=== PATIENT | female | born 1955 | race Caucasian/White ===

== ENCOUNTER 2019-11-30 15:07 | Observation (INO) | payer OTHER, SELFPAY ==
[2019-11-03 13:32] VITALS: BP 117/73; PULSE 68; RESP 16; TEMP 36.8; O2SAT 97; BMI 24.6
--- NOTE | 2019-11-03 13:49 | SDCEKG_ITS ---
Test Reason : Blood Pressure : / mmHG Vent. Rate : 062 BPM Atrial Rate : 062 BPM P-R Int : 158 ms QRS Dur : 082 ms QT Int : 414 ms P-R-T Axes : 056 049 065 degrees QTc Int : 420 ms Normal sinus rhythm Normal ECG Confirmed by JUSTICE COBB, ASHLYN ([id number]), mapping editor JOY SPAULDING ([id number]) on 11/04/2019 9:06:18 AM Referred By: Bruno Palafox Confirmed By:ASHLYN RENDON MD
[2019-11-03 14:17] LABS: Absolute Lymphocyte Count 1.16 X10^3/uL (0.83-4.51); Absolute Neutrophil Count 3.7 X10^3/uL (2.0-7.7); Basophil# 0.04 X10^3/uL; Basophil% 0.7 % (0-1); Eosinophils% 1.9 % (0-5); Hemoglobin 12.4 g/dL (12.0-15.0); Lymphocyte # 1.16 X10^3/ul (4.0); Lymphocyte % 21.5 % (19-41); Mean Corp Hgb Conc 32.6 g/dL (32-36); Mean Corpuscular Hgb 29.2 pg (27.0-32.0); Mean Corpuscular Volume 89.4 fL (81-99); Mean Platelet Vol. 8.8 fl (6.2-12.0); Monocyte% 7.4 % (0-10); NRBC Flagged by Analyzer 0 % (0-5); Neutrophil # 3.67 X10^3/uL (2.7-7.7); Neutrophil % 68.1 % (47-70); Platelet Count 356 K/mm3 (150-450); RBC Distribution Width CV 13.1 % (11.6-14.6); RBC Distribution Width SD 42.9 fl (35.1-43.9); Red Blood Count 4.25 M/mm3 (4.2-5.4); White Blood Count 5.4 K/mm3 (4.4-11.0)
[2019-11-03 14:35] LABS: Anion Gap 3 (5-15); BUN 18 mg/dL (7-18); BUN/Creat Ratio 24.9 RATIO (10-20); Calcium,Total 9.4 mg/dL (8.5-10.1); Chloride 104 mmol/L (98-107); Creatinine, Serum 0.72 mg/dL (0.55-1.02); EST Glomerular Filtration Rate 87 mL/min (>60); Est Glom Filt Rate - Afr Amer 105 mL/min (>60); Estimated Creatinine Clearance 77.77 ml/min; Glucose 96 mg/dL (74-106); Potassium 4.2 mmol/L (3.5-5.1); Sodium Level 139 mmol/L (136-145)
[2019-11-30] VITALS (11 sets, daily range): BP systolic 91–118; BP diastolic 51–87; PULSE 62–93; RESP 16–18; TEMP 36.1–37.1; O2SAT 98–100; BMI 24.6
[2019-11-30 11:21] LABS: Bedside Glucose 86 mg/dL (70-110)
[2019-11-30 11:33] LABS: Magnesium 2.4 mg/dL (1.6-2.6)
[2019-11-30] MEDS: Lactated Ringers 1,000 ML 100 ML IV ×3 (11:44→18:22)
[2019-11-30] MEDS: Acetaminophen 500 MG Tablet 1000 MG PO ×2 (11:45→21:00)
[2019-11-30] MEDS: Gabapentin 600 MG Tablet PO (11:46)
--- NOTE | 2019-11-30 13:05 | HIP_PTH ---
PATIENT: HARVINDER CARSON LOC: MS3 U#:[id number] AGE/SX: 64/F ROOM: MS321 RE11/30/[address]: Dr. Bruno Palafox DO : 1955 BED: 1 DIS: 12/01/2019 SPEC #: [id number] RECD: 11/30/19 16:39 STATUS: TIEN REMoon #: [id number] ANSHU: 11/30/19 13:[address]: Bruno Palafox DEPT: SURGICAL PATHOLOGY RECD BY: Walt Cantu ENTERED: 12/01/19 08:15 SP TYPE: TOTAL HIP OTHR DR: Dr. Mary Rhoades MD Tissues: Hip, NOS Procedures: Decalcification bone/plaque Surgery Specimen Level IV HEADER OPERATION: ERAS, left total hip replacement PRE-OP DIAGNOSIS: Unilateral primary osteoarthritis left hip TISSUE SUBMITTED: Bone and tissue left hip MICROSCOPIC DIAGNOSIS Left hip bone and soft tissue, total hip replacement/resection: Femoral head with degenerative osteoarthritic changes. STEWART:chica 12/04/19 MICROSCOPIC DESCRIPTION Slides are reviewed. GROSS DESCRIPTION Received is one container labeled with the patient's name and designated bone and soft tissue left hip. The specimen consists of a deformed femoral head with portion of femoral neck. The femoral head measures 4.5 x 4.5 x 4.5 cm and the femoral neck measures up to 1.5 cm in length. The articular surface displays prominent osteophyte formation, eburnation and bone erosion. No soft tissue is identified. Dinkey Engineer sections are submitted in one cassette after decalcification. / STEWART:chica 12/01/19 TC:5 CPT: 26501, 20921
[2019-11-30] MEDS: Cefazolin 2 GM in 0.9% Normal Saline 100 ML IV (13:11)
--- NOTE | 2019-11-30 15:22 | EKG12_ITS ---
Test Reason : POSTOP Blood Pressure : / mmHG Vent. Rate : 071 BPM Atrial Rate : 071 BPM P-R Int : 150 ms QRS Dur : 086 ms QT Int : 426 ms P-R-T Axes : 070 057 074 degrees QTc Int : 462 ms Normal sinus rhythm Nonspecific T wave abnormality Abnormal ECG Confirmed by WANDA COBB, SHERIE ([id number]), commissioning editor ANDREA DELEON ([id number]) on 12/07/2019 4:10:23 PM Referred By: Bruno Palafox Confirmed By:SHERIE MUÑOZ MD
--- NOTE | 2019-11-30 15:30 | RAD_ITS ---
STUDY: X-RAY - PELVIS AND LEFT HIP REASON FOR EXAM: Female, 64 years old. POST OP LEFT TOTAL HIP TECHNIQUE: 2 views of the pelvis and hip. COMPARISON: None. FINDINGS: There is a non-specific bowel gas pattern. Normal visualized soft tissue structures. Normal bilateral iliac wings, sacroiliac joints and visualized sacrum. Normal bilateral superior and inferior pubic rami. Normal pubic symphysis. Normal bilateral ischial tuberosities. The patient has undergone left total hip arthroplasty. Following resection of the femoral head and neck, a metal bipolar prosthesis was placed. The acetabular and femoral components appear well seated and in anatomic alignment. There is no demonstrated fracture. Gas is noted about the femoral neck, consistent with recent surgery. There are numerous metal skin eyal along the lateral soft tissues. RAD/Hip Min 2 Views (Portable) IMPRESSION: Status post left total hip arthroplasty. Electronically Signed: Rakan Gonzalez MD at 16:04 EST , Service support ,
[2019-11-30 16:00] LABS: Anion Gap 4 (5-15); BUN 8 mg/dL (7-18); Calcium,Total 8.7 mg/dL (8.5-10.1); Chloride 111 mmol/L (98-107); Creatinine, Serum 0.67 mg/dL (0.55-1.02); EST Glomerular Filtration Rate 95 mL/min (>60); Est Glom Filt Rate - Afr Amer 114 mL/min (>60); Estimated Creatinine Clearance 83.58 ml/min; Glucose 121 mg/dL (74-106); Potassium 3.5 mmol/L (3.5-5.1); Sodium Level 143 mmol/L (136-145)
[2019-11-30 16:05] LABS: Hematocrit 33.5 % (37-47); Hemoglobin 10.6 g/dL (12.0-15.0); Mean Corp Hgb Conc 31.6 g/dL (32-36); Mean Corpuscular Volume 91.5 fL (81-99); Mean Platelet Vol. 8.9 fl (6.2-12.0); Platelet Count 298 K/mm3 (150-450); RBC Distribution Width CV 13.1 % (11.6-14.6); RBC Distribution Width SD 43.9 fl (35.1-43.9); Red Blood Count 3.66 M/mm3 (4.2-5.4); White Blood Count 7.9 K/mm3 (4.4-11.0)
--- NOTE | 2019-11-30 16:47 | OP.PCM_ITS ---
Report of Operation Date of Procedure: 11/30/19 Pre-Operative Diagnosis: OA left hip Post-Operative Diagnosis: same Surgery/Procedure Performed:: Left THR Description of Surgical Findings:: Primary Surgeon/Physician: Bruno Palafox curriculum assistant principal: Robert Pineda PA-C curriculum assistant principal: Pre-Operative Diagnosis: OA left hip Post-Operative Diagnosis: same Surgery/Procedure Performed: Left THR Estimated Blood Loss: 100 cc Specimen's Removed: bone Type of Anesthesia: spinal ASA Class: ASA2 Severe Disease Implants: [Igor Trident Tritanium size 48 mm cup, +0 neck length, MDM liner, Igor Accolade 2 size 4 press-fit stem ] Surgical Indications: Patient has severe end-stage osteoarthritic changes in the [left ] hip. They have failed conservative measures including activity modification, anti-inflammatories, use of assistive devices. This to the point where the pain affects their ability to enjoy life and complete activities of daily living without discomfort. Patient has elected to undergo the above procedure Procedure Description: The patient was greeted in the preoperative area the [left ] hip was marked with surgical marker preoperative antibiotics administered. The patient was then taken to or suite in stable condition. Preoperative tranexamic acid was also utilized. Once the patient was placed in the supine position on the operating room table and once adequate anesthesia was obtained they were then placed in the lateral decubitus position with the surgical hip facing the field. All bony prominences were well-padded. A commercial hip position was utilized. The appropriate extremity was then prepped and draped in usual sterile fashion. Ioban was placed on the skin. Surgical timeout was performed and surgery was commenced. A standard posterior approach to the hip was then performed. Incision was planned and carried out with a #10 blade scalpel. Dissection was then carried length of the incision to the IT band which was split proximally and distally. A Charnley retractor was then placed for soft tissue retraction exposing the piriformis. A standard posterior capsulotomy was performed. Severe eburnation of bone was noted and periarticular osteophytes were identified consistent with severe end-stage osteoarthritis. A femoral neck osteotomy guide was used to oscar the proximal femur. A femoral osteotomy was then created approximately 1 fingerbreadth above the lesser trochanter. This was measured and placed on the back table. Once this was complete acetabular retractors were placed anteriorly and posteriorly. Labrum was then removed from the acetabulum exposing the entire cup of the acetabulum. Sequential reaming was then commenced and the acetabulum was medialized and sequentially widened in order to accommodate appropriate size cup. The acetabular cup was then impacted into position to the appropriate depth referencing approximately 30? anteversion and 45? of inclination. Excellent purchase was obtained. An appropriate size MDM liner was then placed. Attention was then turned to the femoral preparation. The hip was placed in the 90/90 position and a lateralizing box osteotome was utilized. Femoral starting awl was used followed by sequential broaching to the appropriate size. Excellent purchase was obtained with the stem no stem subsidence and excellent rotational stability was confirmed. A calcar reamer was then used in the trial head neck was placed on the broach. The hip was then located and taken through full range of motion flexion internal and external rotation as well as extension. Excellent stability was noted no impingement was identified of the components and leg lengths appear to be appropriate. The hip was at this point dislocated and the trial femoral components were removed. The final femoral stem was then implanted and impacted to the appropriate depth. Again excellent purchase was obtained no stem subsidence or rotational instability was noted. The hip was once again trialed and confirmation of leg length and stability was performed. Soft tissue tension also appeared to be appropriate. At this point the hip was redislocated and the trunnion was cleaned and dried meticulously in the appropriate size MDM femoral head was placed on the clean dry trunnion using a 12/14 Kumar taper. The hip was once again relocated and again taken through full range of motion. I did inject a cocktail of postoperative pain medication in the deep and superficial tissues. Copious irrigation was performed. Anatomic closure of the piriformis tendon was performed through drill holes in the greater trochanter. A #1 Vicryl 0 Vicryl was utilized in subcutaneous tissue and surgical eyal were placed in the skin. A well-padded nonadherent dressing was applied. Patient was taken to PACU in stable condition. No complications were identified. Will follow standard postop protocol for total hip arthroplasty. My assistant golf professional played a vital role in the procedure beginning with positioning, holding retraction of soft tissues, positioning the leg to optimize visualization during the procedure and assisting with wound closure. curriculum assistant principal: Robert Pineda Type of Anesthesia:: Spinal Anesthesiologist: Ayad Marroquin Specimen's removed: bone Estimated Blood Loss (mL): 100 cc - Admit VTE Documentation VTE Present on Admission: No VTE Mechan Device Prophylaxis: SCD's, Thigh High BECKY Hose VTE Pharm Prophylaxis ordered?: Yes
[2019-11-30] MEDS: Ondansetron 4 MG/2 ML Vial IV (18:22)
[2019-11-30] MEDS: 0.9% NaCl Peripheral Flush Adult/Peds IV (18:22)
[2019-11-30] MEDS: oxyCODONE 5 MG Tablet PO (18:22)
[2019-11-30] MEDS: Cefazolin 1 GM/50 ML BAG IV (20:58)
[2019-11-30] MEDS: Senna/Docusate Sodium 1 Tablet 2 TABLET PO (20:58)
[2019-11-30] MEDS: Aspirin 325 MG Tablet PO (20:59)
[2019-12-01 00:45] VITALS: BP 108/59; PULSE 68; RESP 18; TEMP 36.6; O2SAT 97
[2019-12-01] MEDS: Cefazolin 1 GM/50 ML BAG IV (05:18)
[2019-12-01] MEDS: Acetaminophen 500 MG Tablet 1000 MG PO ×2 (05:18→14:47)
[2019-12-01 06:00] LABS: Hematocrit 31.3 % (37-47); Hemoglobin 9.9 g/dL (12.0-15.0); Mean Corp Hgb Conc 31.6 g/dL (32-36); Mean Corpuscular Hgb 28.8 pg (27.0-32.0); Platelet Count 265 K/mm3 (150-450); RBC Distribution Width CV 13.2 % (11.6-14.6); RBC Distribution Width SD 43.6 fl (35.1-43.9); Red Blood Count 3.44 M/mm3 (4.2-5.4); White Blood Count 7.8 K/mm3 (4.4-11.0)
[2019-12-01 06:16] LABS: Anion Gap 5 (5-15); BUN 6 mg/dL (7-18); BUN/Creat Ratio 12.3 RATIO (10-20); Calcium,Total 8.4 mg/dL (8.5-10.1); Chloride 104 mmol/L (98-107); Creatinine, Serum 0.49 mg/dL (0.55-1.02); EST Glomerular Filtration Rate 136 mL/min (>60); Est Glom Filt Rate - Afr Amer 165 mL/min (>60); Estimated Creatinine Clearance 114.28 ml/min; Glucose 102 mg/dL (74-106); Potassium 3.6 mmol/L (3.5-5.1); Sodium Level 137 mmol/L (136-145)
[2019-12-01] MEDS: Ondansetron 4 MG/2 ML Vial IV (06:52)
[2019-12-01] MEDS: 0.9% NaCl Peripheral Flush Adult/Peds IV (06:55)
--- NOTE | 2019-12-01 07:45 | PCM.PN.ORT ---
Subjective: Patient sitting at bedside eating breakfast. Patient states her pain is very well managed. Patient denies chest pain, shortness of breath, calf pain, nausea vomiting. Patient has no other complaints at this time. Patient states she is ready for discharge home, and will continue with outpatient therapy at [facility] Objective: Dressing is clean dry intact. Patient's vitals and labs were all reviewed noted in the medical record. Patient is afebrile neurovascular is otherwise intact. Patient has good plantar flexion dorsiflexion of the bilateral feet and ankles. Patient has no calf tenderness, no signs and symptoms of DVT. Patient speaking in full sentences, no shortness of breath. - Physical Exam Vitals/I&O's: Vital Signs Temp Pulse Resp BP Pulse Ox 97.8 F 68 18 108/59 L 97 12/01/19 00:45 12/01/19 00:45 12/01/19 00:45 12/01/19 00:45 12/01/19 00:45 Oxygen Flow Rate (L/min) 6 Oxygen Delivery Method Room Air Weight: 71.4 kg Body Mass Index (BMI) 24.6 Intake and Output for Last 24 Hours 11/29/19 11/30/19 12/01/19 23:59 23:59 23:59 Intake Total 2693.33 / 3043.33 1711.67 / 1711.67 Output Total 900 / 900 Balance 2693.33 / 2143.33 811.67 / 811.67 General: Alert, Oriented x3, Cooperative HEENT: PERRLA Oral: Moist Mucosa Neurological: Cranial nerves II-XII grossly intact Psych/Mental Status: Normal Affect, Alert and oriented to time, place, person, mood and affect Laboratory Results 11/30/19 11:17: POC Glucose 86 11/30/19 11:20: Magnesium 2.4 11/30/19 15:36: WBC 7.9, RBC 3.66 L, Hgb 10.6 L, Hct 33.5 L, MCV 91.5, MCH 29.0, MCHC 31.6 L, RDW Std Deviation 43.9, RDW Coeff of Nancy 13.1, Plt Count 298, MPV 8.9 11/30/19 15:36: Sodium 143, Potassium 3.5, Chloride 111 H, Carbon Dioxide 28.0, Anion Gap 4 L, BUN 8, Creatinine 0.67, Estim Creat Clear Calc 83.58, Est GFR (MDRD) Af Amer 114, Est GFR (MDRD) Non-Af 95, BUN/Creatinine Ratio 12.0, Glucose 121 H, Calcium 8.7 11/30/19 15:36: Troponin I < 0.015 12/01/19 05:25: WBC 7.8, RBC 3.44 L, Hgb 9.9 L, Hct 31.3 L, MCV 91.0, MCH 28.8, MCHC 31.6 L, RDW Std Deviation 43.6, RDW Coeff of Nancy 13.2, Plt Count 265, MPV 9.0 12/01/19 05:25: Sodium 137, Potassium 3.6, Chloride 104, Carbon Dioxide 28.0, Anion Gap 5, BUN 6 L, Creatinine 0.49 L, Estim Creat Clear Calc 114.28, Est GFR (MDRD) Af Amer 165, Est GFR (MDRD) Non-Af 136, BUN/Creatinine Ratio 12.3, Glucose 102, Calcium 8.4 L Current Medications Acetaminophen (Tylenol) 1,000 mg PO Q8 [facility] Last Admin: 12/01/19 05:18 Dose: 1,000 mg Documented by: Aspirin (Aspirin) 325 mg PO BIDCM [facility] Last Admin: 11/30/19 20:59 Dose: 325 mg Documented by: Sodium Chloride () 250 mls @ 15 mls/hr IV .[id number] PRN PRN Reason: Saline Flush Sodium Chloride () 250 mls @ 15 mls/hr IV .[id number] PRN PRN Reason: Additional IVPB Infusion Insulin Human Lispro (Humalog Kwikpen (Bkc)) 1 - 6 unit SC Q4H PRN PRN; Protocol PRN Reason: BG>/= 180, SEE PROTOCOL Ondansetron HCl (Zofran) 4 mg IV Q8H PRN PRN PRN Reason: NAUSEA Last Admin: 12/01/19 06:52 Dose: 4 mg Documented by: Oxycodone HCl (Oxyir) 5 - 10 mg PO Q4H PRN PRN PRN Reason: Pain Score 4-10/10 Last Admin: 11/30/19 18:22 Dose: 5 mg Documented by: Promethazine HCl (Phenergan) 12.5 mg IM Q6H PRN PRN; Protocol PRN Reason: NAUSEA/VOMITING Senna/Docusate Sodium (Senokot-S, Shellie-Colace) 2 tablet PO BID CASSI Last Admin: 11/30/19 20:58 Dose: 2 tablet Documented by: Sodium Chloride () 5 - 15 ml IV UD PRN PRN Reason: SALINE FLUSH Last Admin: 12/01/19 06:55 Dose: 10 ml Documented by: Sodium Chloride () 10 - 40 ml IV UD PRN PRN Reason: SALINE FLUSH Medical Necessity - Tobacco Use Smoking Status: Never smoker Assessment/Plan Status post left total hip arthroplasty Plan 1. Continue all pain medications as prescribed 2. Continue physical therapy, weight-bear as tolerated with walker. 3. Aspirin 81 mg 1 p.o. every 12 hours x30 days for postop DVT prophylaxis 4. Encourage incentive spirometry 5. Discharge home today after p.m. therapy 6. Follow-up as scheduled, see pink sheet
--- NOTE | 2019-12-01 07:51 | DCINST_ITS ---
Discharge Diet: No Restrictions Discharge Activity: May Not Drive, May Shower, Use Walker May shower in (days): 3 - only if incision is dry and without drainage. Do NOT soak/submerge in tub/pool/prabhakar/stream/hot tub. May resume sexual activity in: No Restrictions Ice area for (Minutes): 20 - every hour while awake Weight Bearing Status: Weight bearing as tolerated Lifting Restrictions: 20 pounds Elevate: Operative Extremity Call your doctor if your incision/area has: Continuous Slow Oozing, Sudden Increased Bleeding, Increased Pain/ Swelling, Increased Redness, Foul Smelling Discharge Call your doctor if you observe: Fever of 101 or Higher, Inability to urinate, Inability to have a bowel movement, Shortness of breath, Fainting spells, Chest pain, Increased palpitations (irregular heartbeat), Calf discomfort, Uncontrolled pain Change Dressing in (Days):: 0 - Change daily and as needed. Remove Dressing in (days):: 8 Cleanse incision/area with: Soap & Water Allergies/Adverse Reactions: Allergies hydrocodone [From Vicodin] Allergy (Verified 11/30/19 11:26) Rash progesterone Allergy (Verified 11/30/19 11:26) Rash Sulfa (Sulfonamide Antibiotics) Allergy (Verified 11/30/19 11:26) Rash Medications to take at Discharge Cholecalciferol (VIT D3) [Vitamin D3] 1,000 unit PO DAILY 11/03/19 Glucos Sul 2Kcl/MSM/Chond/C/Mn [Glucosamine Chondroitin Cap] 1 ea PO BID 11/03/19 Latanoprost/Pf [Latanoprost 0.005% Eye Drop] 1 drp OP QHS 11/03/19 Acetaminophen [Tylenol] 1,000 mg PO Q8 #90 tab 12/01/19 Aspirin 325 mg PO BIDCM #60 tab 12/01/19 Oxycodone [Oxyir] 5 - 10 mg PO Q4H PRN PRN 7 Days #60 tablet 12/01/19 Senna/Docusate Sodium [Senokot-S] 2 tablet PO BID tablet 12/01/19 The following prescriptions were given: Aspirin 325 mg PO BIDCM #60 tab Transmission Status: Pending to [facility] Oxycodone [Oxyir] 5 - 10 mg PO Q4H PRN PRN 7 Days #60 tablet PRN Reason: Pain Score 4-10/10 Transmission Status: Sent to [facility] Acetaminophen [Tylenol] 1,000 mg PO Q8 #90 tab Transmission Status: Pending to [facility] Primary Care Physician: Mary Rhoades MD [Primary Care Provider] - Test Results: Test results from this visit will be discussed in further detail at your follow- up appointment, if applicable. Please Follow Up With: Robert Pineda PA-C When: as scheduled
[2019-12-01 08:23] VITALS: BP 93/56; PULSE 74; RESP 16; TEMP 36.9; O2SAT 98
[2019-12-01] MEDS: Aspirin 325 MG Tablet PO (08:34)
[2019-12-01] MEDS: Senna/Docusate Sodium 1 Tablet 2 TABLET PO (11:09)
--- NOTE | 2019-12-01 11:20 | CASEMGMT ---
RN OWEN Face to Face with patient for initial transition planning/care coordination assessment. RN CM introduced self and role at [facility]. Patient lying in bed, alert and oriented, at bedside. Patient willing to participate in assessment and is able to answer all questions appropriately. Care providers, pharmacy, and demographics verified. Patient wishes to discharge home and is setup with [facility] for outpatient therapy. Patient states he has no further needs or concerns at this time. CM to follow for discharge planning needs that may arise. PCP: [place] Specialists: [place] rooms director Preferred Pharmacy: [facility] while at hospital Insurance: MMO Prescription Benefit: yes Living Will/HPOA: yes, Jesus Harvey LNOK: Living Arrangements: Patient lives with in split level home. Patient independent prior to surgery. Transportation: DME/HHC: Patient has shower chair, raised toilet seat, cane, walker, hip kit. Disposition Plan: Patient to discharge home with outpatient therapy, family support, and follow-up plans in place. Marlys WYNNE, RN, CM
[2019-12-01] MEDS: oxyCODONE 5 MG Tablet PO (11:55)
[2019-12-01 14:35] VITALS: BP 104/60; PULSE 77; RESP 16; TEMP 37.1; O2SAT 99
== END 2019-12-01 16:00 | disposition home or self-care (01) ==
LOC: SDC 15:58 → MS3 15:58
PROVIDERS: Anesthesiology; Admitting Provider Orthopaedic Surgery; PCP Internal Medicine; Referring Provider Orthopaedic Surgery; Visit Provider Orthopaedic Surgery
PROC: 0SRB0JZ Replacement of Left Hip Joint with Synthetic Substitute, Open Approach (ICD-10-PCS; CPT 27130; principal; 2019-11-30 12:40)
DX: M16.12 Unilateral primary osteoarthritis, left hip (principal); Z79.899 Other long term (current) drug therapy; Z79.82 Long term (current) use of aspirin; E78.00 Pure hypercholesterolemia, unspecified; M17.11 Unilateral primary osteoarthritis, right knee
CPT/HCPCS: 01214; 27130; 36415; 73502; 80048; 82962; 83735; 84484; 85025; 85027; 87081; 88305; 88311; 93005; 96361; 96365; 96366; 96375; 96376; 97116; 97162; 97166; 97530; 97535; 99218; 99251; C1776; J7120; A4216; G0378; G0379; G0463; J2405

== ENCOUNTER → 2020-02-12 08:29 | Outpatient (CLI) | payer OTHER, SELFPAY ==
[2019-11-30 16:36] VITALS: BMI 24.6
--- NOTE | 2020-02-12 08:40 | CT_ITS ---
STUDY: CT SCAN LOWER EXTREMITY RIGHT REASON FOR EXAM: Female, 64 years old. RT KNEE PALMER protocol RADIATION DOSAGE (If Supplied By Facility): CTDIvol = ( 30.70 ) mGy, DLP = ( 2048.05 ) mGycm. Individualized dose optimization techniques were used for this CT.? TECHNIQUE: Multiple axial tomographic images of the right hip, right knee and right ankle joints were obtained. Coronal and sagittal reconstruction was obtained as well. COMPARISON: None. FINDINGS: Minimal joint space narrowing is seen involving the right hip joint. Degenerative spurring is seen along the distal femur and proximal tibia. Marked degree of joint space narrowing involving the medial compartment of the knee joint in keeping with the marked degree of osteoarthritis. There is a 5.7 mm while corticated bony fragment along the posterior aspect of knee joint suggestive of a intra-articular loose body. Mild degree of the cystic changes are seen in the femoral condyles. Mild degree of joint space narrowing involving the patellofemoral joint. Screw fixation device is seen along the anterior aspect of the right tibial tubercle with resection. Prepatellar soft tissue swelling. Imaging of the right ankle demonstrates prior open reduction and fixation of the distal fibular fracture utilizing screw and plate fixation device. A screw is seen traversing the distal tibiofibular joint. Cystic changes are seen in the tibial epiphysis with the mild degree of joint space narrowing. There is evidence of a talar beak. CT/Extremity Lower without Contra IMPRESSION: Marked degree of joint space narrowing and degenerative changes involving the medial compartment of the knee joint as described. Electronically Signed: Jamie Her, at 9:48 EDT , Service support ,
== END ==
PROVIDERS: PCP Internal Medicine; Referring Provider Orthopaedic Surgery; Visit Provider Orthopaedic Surgery
DX: M17.31 Unilateral post-traumatic osteoarthritis, right knee (principal); M21.161 Varus deformity, not elsewhere classified, right knee
CPT/HCPCS: 73700; 93005

== ENCOUNTER 2020-02-29 07:28 | Observation (INO) | payer OTHER, SELFPAY ==
[2019-11-30 16:36] VITALS: BMI 24.6
--- NOTE | 2020-02-12 08:56 | EKG12_ITS ---
Test Reason : PRE OP Blood Pressure : / mmHG Vent. Rate : 067 BPM Atrial Rate : 067 BPM P-R Int : 140 ms QRS Dur : 080 ms QT Int : 400 ms P-R-T Axes : 027 009 024 degrees QTc Int : 422 ms Normal sinus rhythm Normal ECG Confirmed by KAREN GOULD ([id number]), slot editor ANDREA DELEON ([id number]) on 02/15/2020 1:15:41 PM Referred By: Bruno Palafox Confirmed By:KAREN GOULD
[2020-02-12 11:08] LABS: Absolute Lymphocyte Count 1.13 X10^3/uL (0.83-4.51); Basophil# 0.04 X10^3/uL; Basophil% 0.8 % (0-1); Eosinophil# 0.09 X10^3/uL; Eosinophils% 1.9 % (0-5); Hematocrit 35.9 % (37-47); Hemoglobin 11.5 g/dL (12.0-15.0); Lymphocyte # 1.13 X10^3/ul (4.0); Lymphocyte % 23.8 % (19-41); Mean Corpuscular Volume 90.4 fL (81-99); Mean Platelet Vol. 9.2 fl (6.2-12.0); Monocyte# 0.47 X10^3/uL; Monocyte% 9.9 % (0-10); NRBC Flagged by Analyzer 0 % (0-5); Neutrophil # 2.99 X10^3/uL (2.7-7.7); Neutrophil % 63.2 % (47-70); Platelet Count 349 K/mm3 (150-450); RBC Distribution Width CV 13.4 % (11.6-14.6); RBC Distribution Width SD 43.9 fl (35.1-43.9); Red Blood Count 3.97 M/mm3 (4.2-5.4); White Blood Count 4.7 K/mm3 (4.4-11.0)
[2020-02-12 11:44] LABS: Anion Gap 5 (5-15); BUN 15 mg/dL (7-18); BUN/Creat Ratio 22.5 RATIO (10-20); Calcium,Total 9.4 mg/dL (8.5-10.1); Chloride 105 mmol/L (98-107); Creatinine, Serum 0.67 mg/dL (0.55-1.02); EST Glomerular Filtration Rate 95 mL/min (>60); Est Glom Filt Rate - Afr Amer 115 mL/min (>60); Glucose 81 mg/dL (74-106); Potassium 3.9 mmol/L (3.5-5.1); Sodium Level 139 mmol/L (136-145)
[2020-02-26 12:11] LABS: Probe Check PASS; SARS-COV-2 DNA by PCR Negative (Negative); Specimen Processing Control PASS
[2020-02-29] VITALS (11 sets, daily range): BP systolic 98–127; BP diastolic 60–82; PULSE 54–88; RESP 16–18; TEMP 36.3–36.7; O2SAT 93–100; BMI 25.2
[2020-02-29] MEDS: Lactated Ringers 1,000 ML 100 ML IV (06:03)
[2020-02-29] MEDS: Acetaminophen 500 MG Tablet 1000 MG PO ×3 (06:03→22:49)
[2020-02-29] MEDS: Gabapentin 600 MG Tablet PO (06:05)
[2020-02-29] MEDS: Scopolamine 1mg/72hr Patch 1 PATCH TRANSDERM. (06:07)
[2020-02-29 06:31] LABS: Bedside Glucose 76 mg/dL (70-110)
[2020-02-29] MEDS: Cefazolin 2 GM in 0.9% Normal Saline 100 ML IV (07:26)
--- NOTE | 2020-02-29 07:30 | KNEE_PTH ---
PATIENT: HARVINDER CARSON LOC: MS3 U#:[id number] AGE/SX: 64/F ROOM: [facility] RE02/29/[address]: Dr. Bruno Palafox DO : 1955 BED: 1 DIS: 03/01/2020 SPEC #: [id number] RECD: 02/29/20 10:03 STATUS: TIEN BIB #: [id number] ANSHU: 02/29/20 07:[address]: Bruno Palafox DEPT: SURGICAL PATHOLOGY RECD BY: Walt Cantu ENTERED: 02/29/20 11:17 SP TYPE: TOTAL KNEE OTHR DR: MD Robert Askew PA-C Tissues: Knee, NOS Procedures: Decalcification bone/plaque Surgery Specimen Level IV HEADER OPERATION: ERAS, total knee replacement robotic arm assist PRE-OP DIAGNOSIS: Unilateral posttraumatic osteoarthritis right knee TISSUE SUBMITTED: Right knee bone and soft tissue MICROSCOPIC DIAGNOSIS Bone and soft tissue of right knee, total knee resection: Mild to moderate synovial hyperplasia with associated chronic inflammation. Bone with severe degenerative joint disease. AM:chica 03/03/20 MICROSCOPIC DESCRIPTION Slides are reviewed. GROSS DESCRIPTION Received is one container designated right knee bone and soft tissue. The specimen consists of multiple fragments of paula-yellow bone measuring in aggregate 15 x 10 x 2 cm. Also in the specimen container are multiple fragments of yellow-white soft tissue measuring in aggregate 11 x 10 x 1 cm. A number of bony fragments contain articular surfaces consistent with tibial plateau and femoral condyle and displaying prominent osteophyte formation, eburnation, and bone erosion. Manager Estate sections are submitted in two cassettes as follows: 1 - soft tissue, 2 - bone after decalcification. / AM:chica 02/29/20 TC:5 [facility]: [id number], [id number]
[2020-02-29] MEDS: Lactated Ringers 1,000 ML 125 ML IV ×2 (08:30→15:30)
--- NOTE | 2020-02-29 09:40 | OP.PCM_ITS ---
Report of Operation Date of Procedure: 02/29/20 Pre-Operative Diagnosis: OA right knee Post-Operative Diagnosis: same Surgery/Procedure Performed:: Right TKR impact hammer operator: Milagros Reinoso Type of Anesthesia:: Spinal Anesthesiologist: Ayad Marroquin - Admwanda VTE Documentation VTE Present on Admission: No VTE Mechan Device Prophylaxis: SCD's, Thigh High BECKY Hose VTE Pharm Prophylaxis ordered?: Yes
--- NOTE | 2020-02-29 10:38 | RAD_ITS ---
STUDY: X-RAY - RIGHT KNEE REASON FOR EXAM: Female, 64 years old. POST OP PORTABLE RIGHT TOTAL KNEE REPLACEMENT TECHNIQUE: 2 view(s) of the knee. COMPARISON: None. FINDINGS: Normal visualized distal femur. Normal visualized proximal tibia and fibula. Normal proximal tibiofibular articulation. The patient is status post total knee replacement. There is good alignment. Postoperative soft tissue changes. RAD/Knee 1 or 2 Views IMPRESSION: Status post total knee replacement. There is good alignment. Postoperative soft tissue changes. Electronically Signed: Jamie Her, at 12:28 EDT , Service support ,
[2020-02-29 11:08] LABS: Hematocrit 38.1 % (37-47); Hemoglobin 11.9 g/dL (12.0-15.0); Mean Corp Hgb Conc 31.2 g/dL (32-36); Mean Corpuscular Hgb 28.5 pg (27.0-32.0); Mean Corpuscular Volume 91.1 fL (81-99); Mean Platelet Vol. 9.1 fl (6.2-12.0); Platelet Count 379 K/mm3 (150-450); RBC Distribution Width CV 13.2 % (11.6-14.6); RBC Distribution Width SD 44.4 fl (35.1-43.9); Red Blood Count 4.18 M/mm3 (4.2-5.4); White Blood Count 8.8 K/mm3 (4.4-11.0)
[2020-02-29 11:21] LABS: Anion Gap 7 (5-15); BUN 12 mg/dL (7-18); BUN/Creat Ratio 17.8 RATIO (10-20); Calcium,Total 8.9 mg/dL (8.5-10.1); Chloride 107 mmol/L (98-107); Creatinine, Serum 0.68 mg/dL (0.55-1.02); EST Glomerular Filtration Rate 93 mL/min (>60); Est Glom Filt Rate - Afr Amer 113 mL/min (>60); Estimated Creatinine Clearance 79.27 ml/min; Glucose 91 mg/dL (74-106); Potassium 3.9 mmol/L (3.5-5.1); Sodium Level 140 mmol/L (136-145)
[2020-02-29] MEDS: oxyCODONE 5 MG Tablet PO ×3 (12:26→22:49)
[2020-02-29] MEDS: Ondansetron 4 MG/2 ML Vial IV (14:39)
[2020-02-29] MEDS: Cefazolin 1 GM/50 ML BAG IV ×2 (15:30→22:50)
[2020-02-29] MEDS: Aspirin 325 MG Tablet PO (16:50)
[2020-02-29] MEDS: Senna/Docusate Sodium 1 Tablet 2 TABLET PO (22:49)
[2020-02-29] MEDS: Latanoprost 0.005% 1 Bottle 1 DRP EACH EYE (22:49)
[2020-03-01 00:12] VITALS: BP 136/79; PULSE 68; RESP 16; TEMP 36.8; O2SAT 96
[2020-03-01] MEDS: Lactated Ringers 1,000 ML 125 ML IV (00:34)
[2020-03-01 04:12] VITALS: BP 126/66; PULSE 68; RESP 16; TEMP 36.9; O2SAT 97
[2020-03-01] MEDS: oxyCODONE 5 MG Tablet PO ×2 (04:14→09:04)
[2020-03-01] MEDS: Acetaminophen 500 MG Tablet 1000 MG PO (05:38)
[2020-03-01] MEDS: 0.9% Saline Lock 10 ML Syringe IV ×2 (05:38→06:07)
[2020-03-01 06:06] LABS: Hematocrit 30.8 % (37-47); Hemoglobin 9.6 g/dL (12.0-15.0); Mean Corp Hgb Conc 31.2 g/dL (32-36); Mean Corpuscular Hgb 28.5 pg (27.0-32.0); Mean Corpuscular Volume 91.4 fL (81-99); Mean Platelet Vol. 9.3 fl (6.2-12.0); Platelet Count 328 K/mm3 (150-450); RBC Distribution Width CV 13.2 % (11.6-14.6); RBC Distribution Width SD 44.4 fl (35.1-43.9); Red Blood Count 3.37 M/mm3 (4.2-5.4); White Blood Count 8.8 K/mm3 (4.4-11.0)
[2020-03-01] MEDS: Ondansetron 4 MG/2 ML Vial IV (06:07)
[2020-03-01 06:28] LABS: Anion Gap 4 (5-15); BUN 9 mg/dL (7-18); BUN/Creat Ratio 18.1 RATIO (10-20); Calcium,Total 8.1 mg/dL (8.5-10.1); Chloride 103 mmol/L (98-107); EST Glomerular Filtration Rate 133 mL/min (>60); Est Glom Filt Rate - Afr Amer 161 mL/min (>60); Estimated Creatinine Clearance 107.81 ml/min; Glucose 145 mg/dL (74-106); Potassium 3.7 mmol/L (3.5-5.1); Sodium Level 133 mmol/L (136-145)
--- NOTE | 2020-03-01 06:47 | PCM.PN.ORT ---
Subjective: The patient was sitting in their upon examination. Patient denies chest pain, shortness of breath, dizziness, lightheadedness, nausea, vomiting or calf pain. Pain is controlled on medications. No adverse events overnight. The patient states this morning when she was walking to the bathroom she experienced some lightheadedness, dizziness, nausea and vomiting. She was given medication and that has resolved. Objective: Vital signs stable. Patient is afebrile. Patient is able to plantar flex and dorsiflex actively. Sensation is intact to light touch to saphenous, sural, superficial and deep peroneal and tibial nerve distributions. Dressing is clean, dry and intact. Negative Homans bilaterally. Negative signs and symptoms of DVT. - Physical Exam Vitals/I&O's: Vital Signs Temp Pulse Resp BP Pulse Ox 98.4 F 68 16 126/66 H 97 03/01/20 04:12 03/01/20 04:12 03/01/20 04:12 03/01/20 04:12 03/01/20 04:12 Oxygen Flow Rate (L/min) 6 Oxygen Delivery Method Room Air Weight: 70.9 kg Body Mass Index (BMI) 25.2 Intake and Output for Last 24 Hours 02/28/20 02/29/20 03/01/20 23:59 23:59 23:59 Intake Total 3905.00 / 4205.00 1139.58 / 1139.58 Balance 3905.00 / 4205.00 1139.58 / 1139.58 General: Alert, Oriented x3, Cooperative HEENT: Atraumatic, PERRLA, Normocephalic Cardiovascular: Regular rate Extremities: No Calf Tenderness, Edema - Postoperative swelling appreciated. Skin: No rashes, No breakdown Musculoskeletal: No Tenderness to Palpation of Joints or Extremities Neurological: Cranial nerves II-XII grossly intact Psych/Mental Status: Normal Affect, Appropriate Laboratory Results 02/29/20 11:00: WBC 8.8, RBC 4.18 L, Hgb 11.9 L, Hct 38.1, MCV 91.1, MCH 28.5, MCHC 31.2 L, RDW Std Deviation 44.4 H, RDW Coeff of Nancy 13.2, Plt Count 379, MPV 9.1 02/29/20 11:00: Sodium 140, Potassium 3.9, Chloride 107, Carbon Dioxide 26.0, Anion Gap 7, BUN 12, Creatinine 0.68, Estim Creat Clear Calc 79.27, Est GFR (MDRD) Af Amer 113, Est GFR (MDRD) Non-Af 93, BUN/Creatinine Ratio 17.8, Glucose 91, Calcium 8.9 03/01/20 05:36: WBC 8.8, RBC 3.37 L, Hgb 9.6 L, Hct 30.8 L, MCV 91.4, MCH 28.5, MCHC 31.2 L, RDW Std Deviation 44.4 H, RDW Coeff of Nancy 13.2, Plt Count 328, MPV 9.3 03/01/20 05:36: Sodium 133 L, Potassium 3.7, Chloride 103, Carbon Dioxide 26.0, Anion Gap 4 L, BUN 9, Creatinine 0.50 L, Estim Creat Clear Calc 107.81, Est GFR (MDRD) Af Amer 161, Est GFR (MDRD) Non-Af 133, BUN/Creatinine Ratio 18.1, Glucose 145 H, Calcium 8.1 L Current Medications Acetaminophen (Tylenol) 1,000 mg PO Q8 [facility] Last Admin: 03/01/20 05:38 Dose: 1,000 mg Documented by: [facility] Admin: 02/29/20 16:50 Dose: 325 mg Documented by: Cholecalciferol (Vitamin D (25mcg)) [facility] Last Admin: 02/29/20 12:21 Dose: Not Given Documented by: Lactated Ringer's () 1,000 mls @ 125 mls/hr IV .Q8H [facility] Last Infusion: 03/01/20 05:41 Dose: 0 mls/hr Documented by: Sodium Chloride () 250 mls @ 15 mls/hr IV .[id number] PRN PRN Reason: Saline Flush Sodium Chloride () 250 mls @ 15 mls/hr IV .[id number] PRN PRN Reason: Additional IVPB Infusion Latanoprost (Xalatan Opthalmic) 1 drop EACH EYE QHS [facility] Last Admin: 02/29/20 22:49 Dose: 1 drop Documented by: Ondansetron HCl (Zofran) 4 mg IV Q8H PRN PRN PRN Reason: NAUSEA Last Admin: 03/01/20 06:07 Dose: 4 mg Documented by: Oxycodone HCl (Oxyir) 5 - 10 mg PO Q4H PRN PRN PRN Reason: Pain Score 4-10/10 Last Admin: 03/01/20 04:14 Dose: 5 mg Documented by: Promethazine HCl (Phenergan) 12.5 mg IM Q6H PRN PRN; Protocol PRN Reason: NAUSEA/VOMITING Senna/Docusate Sodium (Senokot-S, Shellie-Colace) 2 tablet PO BID [facility] Last Admin: 02/29/20 22:49 Dose: 2 tablet Documented by: Sodium Chloride () 10 - 40 ml IV UD PRN PRN Reason: SALINE FLUSH Last Admin: 03/01/20 06:07 Dose: 10 ml Documented by: Medical Necessity - Tobacco Use Smoking Status: Never smoker Tobacco Use: Non-smoker Assessment/Plan 1. Status post right total knee arthroplasty post operative day #1. 2. Continue pain medications: Tylenol and oxycodone 3. DVT prophylaxis: Aspirin 325 mg twice daily and thigh-high BECKY hose 4. PT/OT: weightbearing as tolerated 5. H & H: 9.6/30.8, asymptomatic 6. WBCs: 8.8, afebrile 7. Encouraged incentive spirometry. 8. Continue postoperative medical management per medicine. 9: Postoperative drainage: Dressing is clean dry and intact. Patient may shower today as long as the dressing is clean, dry and intact to the skin. She may remove the dressing in 5 days. 9. Disposition: The plan will be for discharge home today after physical therapy. Patient denies the need for any medications being sent to the pharmacy. She states that she has her strength Tylenol, aspirin, oxycodone and senna at home from a previous hip surgery. She states she will contact the office if she needs any additional medication in the future. Patient will follow-up on March 11, 2020 at the [place] office at 115. She is scheduled for physical therapy on March 04, 2020 at the [place] office at 10 AM.
--- NOTE | 2020-03-01 07:01 | DCINST_ITS ---
Discharge Diet: No Restrictions Discharge Activity: May Not Drive May shower in (days): 1 Ice area for (Minutes): 20 - every hour while awake. Weight Bearing Status: Weight bearing as tolerated Elevate: Operative Extremity Additional Activity Instructions:: Wear elastic stockings for 2 weeks after your surgery. Call your doctor if your incision/area has: Continuous Slow Oozing, Sudden Increased Bleeding, Increased Pain/ Swelling, Increased Redness, Foul Smelling Discharge Call your doctor if you observe: Fever of 101 or Higher, Coldness, Increased Pain, Numbness or Tingling, Change in Color, Calf discomfort, Uncontrolled pain Remove Dressing in (days):: 5 Additional Instructions: The patient was not given any prescriptions for medications. She states she has medications at home from a previous surgery. She should take extra strength Tylenol 500 mg tablets 2 tablets every 8 hours for primary pain control. She will take aspirin 325 mg p.o. twice daily for DVT prophylaxis. She will also have oxycodone 5 mg 1 to 2 tablets every 4-6 hours as needed for breakthrough pain. She has senna for constipation. She will take till her first bowel movement and then as needed. Allergies/Adverse Reactions: Allergies hydrocodone [From Vicodin] Allergy (Verified 02/29/20 05:54) Rash progesterone Allergy (Verified 02/29/20 05:54) Rash Sulfa (Sulfonamide Antibiotics) Allergy (Verified 02/29/20 05:54) Rash Medications to take at Discharge Cholecalciferol (VIT D3) [Vitamin D3] 1,000 unit PO DAILY 11/03/19 Glucos Sul 2Kcl/MSM/Chond/C/Mn [Glucosamine Chondroitin Cap] 1 ea PO BID 11/03/19 Latanoprost/Pf [Latanoprost 0.005% Eye Drop] 1 drp OP QHS 11/03/19 Ibuprofen 400 mg PO PRN PRN 02/19/20 Primary Care Physician: Mary Rhoades MD [Primary Care Provider] - Test Results: Test results from this visit will be discussed in further detail at your follow- up appointment, if applicable. Please Follow Up With: Robert Pineda PA-C When: March 11, 2020 at 1:15 pm Please Follow Up With: Physical Therapy When: March 04, 2020 at 10:00 am
[2020-03-01] MEDS: Aspirin 325 MG Tablet PO (09:02)
[2020-03-01] MEDS: Senna/Docusate Sodium 1 Tablet 2 TABLET PO (09:02)
[2020-03-01 09:12] VITALS: BP 105/67; PULSE 60; RESP 16; TEMP 36.6; O2SAT 95
--- NOTE | 2020-03-01 10:55 | CASEMGMT ---
RN CM Face to Face with patient for initial transition planning/care coordination assessment. RN CM introduced self and role at [facility]. Patient sitting in chair, alert and oriented. Patient willing to participate in assessment and is able to answer all questions appropriately. Care providers, pharmacy, and demographics verified. Patient wishes to discharge home and is setup with [facility] for outpatient therapy. Patient states she has no further needs or concerns at this time. CM to follow for discharge planning needs that may arise. PCP: [place] Specialists: [facility]e [facility] Pharmacy: [facility] Insurance: MMO Prescription Benefit: yes Living Will/HPOA: yes, Jesus Harvey LNOK: Living Arrangements: Patient lives with in split level home with 7 steps and railing. Patient states she was independent at home prior to discharge. Transportation: DME/HHC: Patient states she has shower chair, BSC, hip kit, and walker. Patient is setup for outpatient therapy at [facility] starting Saturday. Disposition Plan: Patient to discharge home with outpatient therapy, family support, and follow-up plans in place. Marlys WYNNE, RN, CM
[2020-03-01 13:02] VITALS: BP 110/59; PULSE 69; RESP 16; TEMP 36.8; O2SAT 97
== END 2020-03-01 13:35 | disposition home or self-care (01) ==
LOC: SDC 08:12 → MS3 08:12
PROVIDERS: Anesthesiology; Admitting Provider Orthopaedic Surgery; PCP Internal Medicine; Referring Provider Orthopaedic Surgery; Visit Provider Orthopaedic Surgery
PROC: 0SRC0JZ Replacement of Right Knee Joint with Synthetic Substitute, Open Approach (ICD-10-PCS; CPT 27447; principal; 2020-02-29 07:00)
DX: M17.31 Unilateral post-traumatic osteoarthritis, right knee (principal); E78.00 Pure hypercholesterolemia, unspecified; H40.9 Unspecified glaucoma; Z79.899 Other long term (current) drug therapy; Z79.82 Long term (current) use of aspirin
CPT/HCPCS: 01400; 27447; 64447; S2900; 36415; 73560; 80048; 82962; 85025; 85027; 87081; 87635; 88305; 88311; 96361; 96365; 96366; 96375; 96376; 97110; 97116; 97161; 97166; 97530; 97535; 99218; 99251; C1776; G2023; J7120; A4216; G0378; G0379; G0463; J2405; U0004